=== PATIENT | male | born 1960 | race Caucasian/White ===

== ENCOUNTER → 2017-09-26 | Outpatient (CLI) | payer BC ==
[~2017-09-26] MED LIST: IOHEXOL 300 MG/ML 75 ML VIAL. IV ONE
--- NOTE | 2017-09-26 15:43 | RAD ---
Indication: Cough, short of air. 40 pack-year smoking history Technique: Axial images and coronal and sagittal reformatted images are provided. 75 mL of intravenous Omnipaque 300 was administered without complication. No comparison is available. One or more of the following individualized dose reduction techniques were utilized for this examination: 1. Automated exposure control 2. Adjustment of the mA and/or kV according to patient size 3. Use of iterative reconstruction technique Findings: There is right middle lobe consolidation with air bronchogram. There is minimal dependent atelectasis. There is mild emphysema. There is minimal lingular atelectasis or scarring. There is no worrisome pulmonary nodule. There is minimal presumed apical scarring. Central airways are patent. There is a left thyroid nodule measuring 14 mm. There are calcified mediastinal lymph nodes. There is no hilar or mediastinal adenopathy. Mildly prominent precarinal lymph node measures 20 x 10 mm. The heart is not enlarged. Calcifications within the adrenals bilaterally are noted. Bony structures are intact with mild degenerative changes in the thoracic spine. Impression: 1. Right middle lobe consolidation most likely secondary to pneumonia. Chest radiograph follow-up to document resolution and exclude underlying lesion is recommended. 2. Emphysema. 3. 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 4. Left thyroid nodule, consider nonemergent thyroid ultrasound.
== END | disposition home or self-care (01) ==
LOC: CT 10:55
PROVIDERS: ATTEND Family Medicine
DX: J43.9 Emphysema, unspecified (principal); E04.1 Nontoxic single thyroid nodule; E27.49 Other adrenocortical insufficiency; Z87.891 Personal history of nicotine dependence; M47.894 Other spondylosis, thoracic region
CPT/HCPCS: 71260; Q9967

== ENCOUNTER 2019-04-12 13:35 | Emergency (ER) | payer BC ==
[~2019-04-12] VITALS: Ht 185.4 cm; Wt 61.8 kg
--- NOTE | 2019-04-12 14:08 | PHYS DOC ---
Past History Past Medical History: No Pertinent History Past Surgical History: No Surgical History Alcohol Use: Heavy Drug Use: None Adult General Chief Complaint Chief Complaint: INSECT BITE HPI HPI 58-year-old male presents with insect bite. The patient believes he was stung by a wasp. 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 The sting was just below his right side. It is moderately swollen, but not affecting his vision. He is still able to easily open his eye. Due to his allergy, he thought it best to calm and be evaluated. The sting occurred about 90 minutes prior to arrival. Patient is having no difficulty breathing. He denies nausea or vomiting. The right side of his face is mildly pruritic. 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 Review of Systems Review of Systems Constitutional: Denies fever or chills [] Eyes: Denies change in visual acuity, redness, or eye pain [] HENT: Denies nasal congestion or sore throat [] Respiratory: Denies cough or shortness of breath [] Cardiovascular: No additional information not addressed in HPI [] GI: Denies abdominal pain, nausea, vomiting, bloody stools or diarrhea [] : Denies dysuria or hematuria [] Musculoskeletal: Denies back pain or joint pain [] Integument: Swelling below the right eye and right nose[] Neurologic: Denies headache, focal weakness or sensory changes [] Endocrine: Denies polyuria or polydipsia [] All other systems were reviewed and found to be within normal limits, except as documented in this note. Current Medications Current Medications Current Medications Medications (Trade) Dose Ordered Sig/Iliana Start Time Stop Time Status Last Admin Dose Admin Diphenhydramine HCl (Benadryl) 25 mg 1X ONCE 04/12/19 14:25 04/12/19 14:26 Famotidine (Pepcid Vial) 20 mg 1X ONCE 04/12/19 14:25 04/12/19 14:26 Methylprednisolone Sodium Succinate (SOLU-Medrol 125MG VIAL) 125 mg 1X ONCE 04/12/19 14:25 04/12/19 14:26 Allergies Allergies Allergies Coded Allergies Type Severity Reaction Last Updated Verified aspirin Allergy Unknown 09/26/17 Yes Physical Exam Physical Exam Constitutional: Well developed, well nourished, no acute distress, non-toxic appearance. [] HENT: Normocephalic, atraumatic, bilateral external ears normal, oropharynx moist, no oral exudates, nose normal. [] Eyes: PERRLA, EOMI, conjunctiva normal, no discharge. [] Neck: Normal range of motion, no tenderness, supple, no stridor. [] Cardiovascular:Heart rate regular rhythm, no murmur [] Lungs & Thorax: Bilateral breath sounds clear to auscultation [] Abdomen: Bowel sounds normal, soft, no tenderness, no masses, no pulsatile masses. [] Skin: Moderate swelling below the right eye extending up to the right nasal area. No eye involvement. [] Back: No tenderness, no CVA tenderness. [] Extremities: No tenderness, no cyanosis, no clubbing, ROM intact, no edema. [] Neurologic: Alert and oriented X 3, normal motor function, normal sensory function, no focal deficits noted. [] Psychologic: Affect normal, judgement normal, mood normal. [] Current Patient Data Vital Signs Vital Signs Date Time Temp Pulse Resp B/P (MAP) Pulse Ox O2 Delivery O2 Flow Rate FiO2 04/12/19 13:48 98.4 86 16 96 Room Air EKG EKG [] Radiology/Procedures Radiology/Procedures [] Course & Med Decision Making Course & Med Decision Making Pertinent Labs and Imaging studies reviewed. (See chart for details) I given the patient 125 of Solu-Medrol, 20 mg of Pepcid, 25 mg of Benadryl. We will observe him for a period make sure that his reaction does not advance. The patient has had no advancement of his symptoms. His condition is stable. His pruritus is improved. He is stable for discharge at this time. [] Dragon Disclaimer Dragon Disclaimer This electronic medical record was generated, in whole or in part, using a voice recognition dictation system. Departure Departure: Impression: Primary Impression: Insect sting allergy, current reaction Disposition: 01 HOME, SELF-CARE Condition: STABLE Referrals: THERESA KRAUSE MD (PCP) Patient Instructions: Insect Sting Allergy Problem Qualifiers Primary Impression: Insect sting allergy, current reaction Encounter type: initial encounter Injury intent: accidental or unint entional Qualified Codes: T63.481A - Toxic effect of venom of other arthropod, accidental (unintentional), initial encounter AGATHA MEJIA DO Apr 12, 2019 14:08
[2019-04-12 14:22] LABS: BASO % 1 % (0-3); EOS # 0.2 x10^3/uL (0.0-0.7); EOS % 5 % (0-3); HEMATOCRIT 45.5 % (39.0-53.0); HEMOGLOBIN 15.8 g/dL (13.0-17.5); LYMPH # 0.9 x10^3/uL (1.0-4.8); LYMPH % 18 % (24-48); MEAN CORPUSCULAR HEMOGLOBIN 34 pg (25-35); MEAN CORPUSCULAR HGB CONC 35 g/dL (31-37); MEAN CORPUSCULAR VOLUME 99 fL (79-100); MONO # 0.4 x10^3/uL (0.0-1.1); MONO % 8 % (0-9); NEUT # 3.4 x10^3uL (1.8-7.7); NEUT % 69 % (31-73); PLATELET COUNT 171 x10^3/uL (140-400); RED CELL DISTRIBUTION WIDTH 13.8 % (11.5-14.5)
[2019-04-12] MEDS ORDERED: methylPREDNISolone SOD SUCC PF 125 MG/2 ML VIAL. IV ONE (14:25)
[2019-04-12] MEDS ORDERED: FAMOTIDINE 20 MG/2 ML VIAL IVP ONE (14:25)
[2019-04-12] MEDS ORDERED: diphenhydrAMINE 50 MG/ML VIAL IVP ONE (14:25)
[2019-04-12 14:27] LABS: ALBUMIN 3.9 g/dL (3.4-5.0); ALBUMIN/GLOBULIN RATIO 1.1 (1.0-1.7); CALCIUM 8.7 mg/dL (8.5-10.1); CREATININE 0.6 mg/dL (0.7-1.3); GFR 138.9; POTASSIUM 4.1 mmol/L (3.5-5.1); TOTAL BILIRUBIN 0.5 mg/dL (0.2-1.0); TOTAL PROTEIN 7.3 g/dL (6.4-8.2)
[2019-04-12 15:16] VITALS: BP 137/89
== END 2019-04-12 15:15 | disposition home or self-care (01) ==
LOC: ER 13:35
DX: T63.461A Toxic effect of venom of wasps, accidental (unintentional), initial encounter (principal); L29.9 Pruritus, unspecified; Z88.6 Allergy status to analgesic agent; F10.20 Alcohol dependence, uncomplicated; Y90.9 Presence of alcohol in blood, level not specified; Y92.89 Other specified places as the place of occurrence of the external cause
CPT/HCPCS: 36415; 80053; 85025; 96374; 96375; 99284; J1200; J2930; J3490

== ENCOUNTER 2022-01-28 13:02 | Emergency (ER) | payer OTHER ==
[~2022-01-28] VITALS: Ht 185.4 cm; Wt 65.0 kg
[2022-01-28] MEDS ORDERED: IV RINGERS SOLUTION,LACTATED 1,000 ML IV SCH (13:15)
[2022-01-28] MEDS ORDERED: ASPIRIN CHEWABLE 81 MG TABLET. PO ONE (13:15)
[2022-01-28] MEDS ORDERED: NITROGLYCERIN SUBLINGUAL 0.4 MG BOTTLE OF 25. SL PRN (13:15)
--- NOTE | 2022-01-28 13:26 | PHYS DOC ---
Past History Past Medical History: No Pertinent History Past Surgical History: No Surgical History Alcohol Use: Heavy Drug Use: None General Adult EDM: Chief Complaint: CHEST PAIN HPI: HPI: Patient is a 61-year-old male coming in for chest pain started about 2 and half hours prior to arrival. Patient states he was in the kitchen cooking food for his mother when he felt sharp pain shoot across his chest. Patient went to sit down. Patient also he was feeling lightheaded whenever he went to stand up, went away with rest. Denies any shortness of breath, fevers, diaphoresis, nausea or vomiting. Patient denies any medical history. Unknown family history. Patient smokes about a pack of cigarettes daily and drinks a sixpack. Review of Systems: Review of Systems: All other systems within normal limits except for as noted in the HPI Allergies: Allergies: Allergies Coded Allergies Type Severity Reaction Last Updated Verified aspirin Allergy Unknown 09/26/17 Yes Physical Exam: PE: Constitutional: Well developed, well nourished, no acute distress, non-toxic appearance. [] HENT: Normocephalic, atraumatic, bilateral external ears normal, nose normal. [] Eyes: PERRLA, conjunctiva normal, no discharge. [] Neck: No rigidity, supple, no stridor. [] Cardiovascular: Regular rate and rhythm, brisk cap refill. Symmetric radial pulses [] Lungs & Thorax: Non labored symmetric respirations, no tachypnea or respiratory distress. Pain not regional [] Abdomen: Soft, nondistended. Skin: Warm, dry, no erythema, no rash. [] Back: Unremarkable Extremities: No deformities, range of motion grossly intact, no lower extremity edema [] Neurologic: Alert and oriented X 3, no focal deficits noted. [] Psychologic: Affect normal, judgement normal, mood normal. [] Current Patient Data: Vital Signs: Vital Signs Date Time Temp Pulse Resp B/P (MAP) Pulse Ox O2 Delivery O2 Flow Rate FiO2 01/28/22 13:03 83 16 213/126 (155) 98 Room Air EKG: EKG: Sinus rhythm, heart rate 80 bpm, normal axis, no STEMI [] Radiology/Procedures: Radiology/Procedures: [address] [address] IMAGING REPORT Signed PATIENT: TASHA BROCK ACCOUNT: [id number] : 1960 LOCATION: ER AGE: 61 SEX: M EXAM STATUS: REG ER ORD. PHYSICIAN: RASHEED HERNANDEZ MD REASON: chest pain PROCEDURE: PORTABLE CHEST 1V INDICATION: Reason: chest pain / Spl. Instructions: / History: COMPARISON: September 2017 FINDINGS: Frontal view of chest obtained. Hyperexpanded lungs. No definite focal consolidation. Calcified lymph node at mediastinum could be sequela of chronic granulomatous disease IMPRESSION: * Hyperexpanded lungs which can be seen with emphysema. * No definite focal airspace consolidation. Electronically signed by: Mahin Smallwood MD (01/28/2022 1:55 PM) [id number] DICTATED AND SIGNED BY: MAHIN SMALLWOOD MD DATE: 01/28/22 1352 CC: RASHEED HERNANDEZ MD; THERESA KRAUSE MD ~ [] Heart Score: C/O Chest Pain: Yes HEART Score for Chest Pain: HEART Score for Chest Pain Response (Comments) Value History Slighlty/Non-Suspicious 0 ECG Normal 0 Age >45 - < 65 1 Risk Factors 1 or 2 Risk Factors 1 Troponin < Normal Limit 0 Total 2 Risk Factors: Risk Factors: DM, Current or recent (<one month) smoker, HTN, HLP, family history of CAD, obesity. Risk Scores: Score 0 - 3: 2.5% MACE over next 6 weeks - Discharge Home Score 4 - 6: 20.3% MACE over next 6 weeks - Admit for Clinical Observation Score 7 - 10: 72.7% MACE over next 6 weeks - Early Invasive Strategies Course & Med Decision Making: Course & Med Decision Making Pertinent Labs and Imaging studies reviewed. (See chart for details) Patient with atypical chest pain and a heart score of 2. Patient is hypertensive but is also anxious about his chest pain. I discussed following up with his primary care tomorrow in the walk-in clinic to have his blood pressure rechecked. Labs unremarkable. Patient is not feeling lightheaded after LR bolus. Encouraged to increase fluid intake [] Dragon Disclaimer: Dragon Disclaimer: This electronic medical record was generated, in whole or in part, using a voice recognition dictation system. Departure Departure: Impression: Primary Impression: Chest pain Disposition: HOME / SELF CARE / HOMELESS Condition: STABLE Referrals: THERESA KRAUSE MD (PCP) Patient Instructions: Chest Pain (Nonspecific), Smoking, You Can Quit, [id number] RASHEED HERNANDEZ MD Jan 28, 2022 13:26
[2022-01-28 13:35] LABS: BASO # 0.1 x10^3/uL (0.0-0.2); BASO % 2 % (0-3); EOS # 0.3 x10^3/uL (0.0-0.7); EOS % 6 % (0-3); HEMATOCRIT 48.5 % (39.0-53.0); HEMOGLOBIN 16.7 g/dL (13.0-17.5); LYMPH # 1.3 x10^3/uL (1.0-4.8); LYMPH % 26 % (24-48); MEAN CORPUSCULAR HEMOGLOBIN 34 pg (25-35); MEAN CORPUSCULAR HGB CONC 34 g/dL (31-37); MEAN CORPUSCULAR VOLUME 100 fL (79-100); MONO # 0.4 x10^3/uL (0.0-1.1); MONO % 7 % (0-9); NEUT % 59 % (31-73); PLATELET COUNT 152 x10^3/uL (140-400); RED BLOOD COUNT 4.84 x10^6/uL (4.30-5.70); RED CELL DISTRIBUTION WIDTH 13.6 % (11.5-14.5); WHITE BLOOD COUNT 5.1 x10^3/uL (4.0-11.0)
[2022-01-28 13:44] LABS: CREATININE 0.6 mg/dL (0.7-1.3); GFR 137.4; POTASSIUM 4.7 mmol/L (3.5-5.1)
--- NOTE | 2022-01-28 13:57 | RAD ---
INDICATION: Reason: chest pain / Spl. Instructions: / History: COMPARISON: September 2017 FINDINGS: Frontal view of chest obtained. Hyperexpanded lungs. No definite focal consolidation. Calcified lymph node at mediastinum could be sequela of chronic granulomatous disease IMPRESSION: * Hyperexpanded lungs which can be seen with emphysema. * No definite focal airspace consolidation. Electronically signed by: Dre Zhao MD (01/28/2022 1:55 PM) [id number]
[2022-01-28 13:58] LABS: ALBUMIN 3.9 g/dL (3.4-5.0); MAGNESIUM 2.3 mg/dL (1.8-2.4); TOTAL BILIRUBIN 0.7 mg/dL (0.2-1.0); TOTAL PROTEIN 7.7 g/dL (6.4-8.2)
[2022-01-28 14:22] LABS: BACTERIA,URINE 0 /HPF (0-FEW); CLARITY,URINE CLEAR; COLOR,URINE YELLOW; GLUCOSE,URINE NEG (NEG); NITRITE,URINE NEG (NEG); RBC,URINE 0 /HPF (0-2); UROBILINOGEN,URINE 0.2 mg/dL (0.2 mg/dL); WBC,URINE 0 /HPF (0-4)
[2022-01-28 16:45] VITALS: BP 179/101
--- NOTE | 2022-01-28 19:04 | EKG ---
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
--- NOTE | 2022-01-28 21:48 | EKG ---
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
== END 2022-01-28 17:00 | disposition home or self-care (01) ==
LOC: ER 13:02
DX: R07.89 Other chest pain (principal); R42 Dizziness and giddiness; F17.210 Nicotine dependence, cigarettes, uncomplicated; F10.20 Alcohol dependence, uncomplicated; Z88.6 Allergy status to analgesic agent; Y90.9 Presence of alcohol in blood, level not specified
CPT/HCPCS: 36415; 71045; 80053; 81001; 83690; 83735; 83880; 84484; 85025; 85379; 85610; 85730; 93005; 96360; 99285; J7120